=== PATIENT | male | born 1970 ===

== ENCOUNTER 2016-10-22 20:20 | Emergency (ER) | payer BC, OTHER ==
[2016-10-22 20:39] VITALS: BP 137/77
[2016-10-22] MEDS ORDERED: Famotidine 20 MG/2 ML SDV IVPUSH ONE (21:09)
[2016-10-22] MEDS ORDERED: Sodium Chloride 0.9% 10 ML Syringe FLUSH PRN (21:09)
[2016-10-22] MEDS ORDERED: Ondansetron 4 MG Tab.DIS PO ONE (21:09)
[2016-10-22] MEDS ORDERED: Sodium Chloride 0.9% 1,000 ML IV SCH (21:15)
[2016-10-22] MEDS ORDERED: HYDROmorphone 0.5 MG/0.5 ML Syringe IVPUSH ONE (21:16)
[2016-10-22] MEDS ORDERED: Ondansetron 4 MG/2 ML SDV IVPUSH ONE (21:16)
[2016-10-22] MEDS ORDERED: Sodium Chloride 0.9% 500 ML IV ONE (22:36)
--- NOTE | 2016-10-22 22:37 | EDM.PDOC ---
ED HPI GENERAL MEDICAL PROBLEM - General Chief Complaint: Abdominal Pain Stated Complaint: ABDOMINAL PAIN Time Seen by Provider: 10/22/16 20:46 Source of Information: Reports: Patient, Family (Spouse), RN Notes Reviewed - History of Present Illness INITIAL COMMENTS - FREE TEXT/NARRATIVE: 45-year-old male comes in with upper abdominal pain. Started. Early this morning about 18 hours ago. The pain has gotten worse throughout the day. He has no appetite. He has had nausea, did make himself vomit once and that did help the discomfort for a while. Continues to have intermittent severe discomfort with slight radiation to the back. It is gallbladder taken out about 3 or 4 years ago. He states he did have to go to [facility] after surgery and have what sounds like an ERCP. Is not having chest pain or difficulty breathing. No fever or chills. No diarrhea. Epigastric Pain Score (Numeric/FACES): 9 - Related Data Allergies Allergy/AdvReac Type Severity Reaction Status Date / Time No Known Allergies Allergy Verified 10/22/16 20:39 Home Meds: Home Meds . [No Known Home Meds] 10/22/16 [History] Past Medical History - Past Health History Medical/Surgical History: Denies Medical/Surgical History - Past Surgical History GI Surgical History: Reports: Cholecystectomy Social & Family History - Tobacco Use Smoking Status *Q: Never Smoker Years of Tobacco use: 15 Used Tobacco, but Quit: No Second Hand Smoke Exposure: No - Caffeine Use Caffeine Use: Reports: Soda - Alcohol Use Days Per Week of Alcohol Use: 0 - Recreational Drug Use Recreational Drug Use: No Drug Use in Last 12 Months: No ED ROS GENERAL - Review of Systems Review Of Systems: See Below Constitutional: Denies: Fever, Chills, Diaphoresis HEENT: Denies: Throat Pain Respiratory: Denies: Shortness of Breath, Pleuritic Chest Pain Cardiovascular: Denies: Chest Pain GI/Abdominal: Reports: Abdominal Pain (Upper abdomen), Nausea, Vomiting (Once). Denies: Constipation, Diarrhea : Reports: No Symptoms Musculoskeletal: Reports: Back Pain (Occasional mild) Skin: Reports: No Symptoms Neurological: Reports: No Symptoms ED EXAM, GI/ABD - Physical Exam Exam: See Below General Appearance: Alert, Moderate Distress Throat/Mouth: Normal Inspection, Normal Oropharynx Head: Atraumatic. No: Facial Swelling Neck: Supple, Full Range of Motion Respiratory/Chest: No Respiratory Distress, Lungs Clear, Normal Breath Sounds Cardiovascular: Regular Rate, Rhythm GI/Abdominal: Soft, Tenderness (Upper mid abdomen, remainder of abdomen soft and nontender). No: Guarding, Rebound Back Exam: Normal Inspection. No: CVA Tenderness (L), CVA Tenderness (R) Extremities: Normal Inspection, Increased Warmth Neurological: Alert, Oriented, No Motor/Sensory Deficits Skin Exam: Warm, Dry, Normal Color Course - Vital Signs Last Recorded V/S: Last Vital Signs Temp 96.9 F 10/22/16 20:34 Pulse 82 10/22/16 20:34 Resp 18 10/22/16 20:34 BP 137/77 10/22/16 20:34 Pulse Ox 98 10/22/16 20:34 - Orders/Labs/Meds Orders: Active Orders 24 hr Category Date Time Status Peripheral IV Care [RC] . DIRECTED Care 10/22/16 21:09 Active Abdomen Pelvis w Cont [CT] Stat Exams 10/22/16 22:36 Taken Sodium Chloride 0.9% [Normal Saline] 1,000 ml Med 10/22/16 21:15 Active IV ONETIME Sodium Chloride 0.9% [Saline Flush] Med 10/22/16 21:09 Active 10 ml FLUSH ASDIRECTED PRN Peripheral IV Insertion Adult [OM.PC] Stat Oth 10/22/16 21:09 Ordered Medication Orders Sodium Chloride (Normal Saline) 1,000 mls @ 999 mls/hr IV ONETIME [facility] Last Admin: 10/22/16 21:26 Dose: 999 mls/hr Sodium Chloride (Saline Flush) 10 ml FLUSH ASDIRECTED PRN PRN Reason: Keep Vein Open Last Admin: 10/22/16 21:27 Dose: 10 ml Labs: Laboratory Tests 10/22/16 10/22/16 10/22/16 Range/Units 21:15 21:15 21:15 WBC 13.19 H (4.23-9.07) K/mm3 RBC 5.78 (4.63-6.08) M/mm3 Hgb 16.2 (13.7-17.5) gm/L Hct 47.2 (40.1-51.0) % MCV 81.7 (79.0-92.2) fl MCH 28.0 (25.7-32.2) pg MCHC 34.3 (32.2-35.5) g/dl RDW Std Deviation 42.0 (35.1-43.9) fL Plt Count 236 (163-337) K/mm3 MPV 10.8 (9.4-12.3) fl Neut % (Auto) 84.2 H (34.0-67.9) % Lymph % (Auto) 8.1 L (21.8-53.1) % Morrill % (Auto) 7.3 (5.3-12.2) % Eos % (Auto) 0.1 L (0.8-7.0) Baso % (Auto) 0.1 (0.1-1.2) % Neut # (Auto) 11.11 H (1.78-5.38) K/mm3 Lymph # (Auto) 1.07 L (1.32-3.57) K/mm3 Morrill # (Auto) 0.96 H (0.30-0.82) K/mm3 Eos # (Auto) 0.01 L (0.04-0.54) K/mm3 Baso # (Auto) 0.01 (0.01-0.08) K/mm3 Manual Slide Review Normal smear Sodium 138 (136-145) mEq/L Potassium 4.0 (3.5-5.1) mEq/L Chloride 104 (98-107) mEq/L Carbon Dioxide 25 (21-32) mEq/L Anion Gap 13.0 (5-15) BUN 15 (7-18) mg/dL Creatinine 1.2 (0.7-1.3) mg/dL Est Cr Clr Drug Dosing 81.05 mL/min Estimated GFR (MDRD) > 60 (>60) mL/min BUN/Creatinine Ratio 12.5 L (14-18) Glucose 135 H (74-106) mg/dL Calcium 8.9 (8.5-10.1) mg/dL Total Bilirubin 1.7 H (0.2-1.0) mg/dL GGT 21 (15-85) U/L AST 22 (15-37) U/L ALT 43 (16-63) U/L Alkaline Phosphatase 83 (46-116) U/L Total Protein 7.8 (6.4-8.2) g/dl Albumin 4.1 (3.4-5.0) g/dl Globulin 3.7 gm/dL Albumin/Globulin Ratio 1.1 (1-2) Lipase 32480 H (73-393) U/L Meds: Medications Generic Name Dose Route Start Last Admin Trade Name Kinjal PRN Reason Stop Dose Admin Sodium Chloride 1,000 mls @ 999 mls/hr 10/22/16 21:15 10/22/16 21:26 Normal Saline IV 999 mls/hr ONETIME [facility] Administration Sodium Chloride 10 ml 10/22/16 21:09 10/22/16 21:27 Saline Flush FLUSH 10 ml ASDIRECTED PRN Administration Keep Vein Open Discontinued Medications Generic Name Dose Route Start Last Admin Trade Name Rigobertoq PRN Reason Stop Dose Admin Famotidine 20 mg 10/22/16 21:09 10/22/16 21:26 Pepcid IVPUSH 10/22/16 21:10 20 mg ONETIME ONE Administration Hydromorphone HCl 0.5 mg 10/22/16 21:16 10/22/16 21:26 Dilaudid IVPUSH 10/22/16 21:17 0.5 mg ONETIME ONE Administration Hydromorphone HCl 0.5 mg 10/23/16 01:06 10/23/16 01:12 Dilaudid IVPUSH 10/23/16 01:07 0.5 mg ONETIME ONE Administration Sodium Chloride 500 mls @ 999 mls/hr 10/22/16 22:36 10/22/16 22:44 Normal Saline IV 10/22/16 23:06 999 mls/hr .BOLUS ONE Administration Sodium Chloride 500 mls @ 999 mls/hr 10/23/16 01:06 10/23/16 01:13 Normal Saline IV 10/23/16 01:36 999 mls/hr .BOLUS ONE Administration Iopamidol 100 ml 10/22/16 23:56 Isovue-370 (76%) IVPUSH 10/22/16 23:57 ONETIME ONE Iopamidol 25 ml 10/22/16 23:56 Isovue-370 (76%) IVPUSH 10/22/16 23:57 ONETIME ONE Ondansetron HCl 4 mg 10/22/16 21:16 10/22/16 21:27 Zofran IVPUSH 10/22/16 21:17 4 mg ONETIME ONE Administration - Re-Assessments/Exams Free Text/Narrative Re-Assessment/Exam: 10/22/16 22:47 patient feels better after Dilaudid 0.5 mg IV, Zofran IV. Unfortunately his labs show quite marketed lipase of 12,500, bilirubin mildly elevated at 1.7. Liver enzymes are all normal. White blood count 13,000. 10/23/16 01:30. CT of abdomen showed a subtle "dusky appearance to the peripancreatic fat". See radiologist report for details. Patient continues to have intermittent upper abdominal discomfort. He did do fairly well with the Dilaudid 0.5 mg IV for a while but now the pain is starting to come back. Have repeated Dilaudid 0.5 mg IV. I have offered observation admission. At this time he does decline, states [place] Discharge instructions as documented Departure - Departure Time of Disposition: 01:23 Disposition: Home, Self-Care 01 Condition: serious Clinical Impression: Pancreatitis Qualifiers: Chronicity: acute Pancreatitis type: unspecified pancreatitis type Acute pancreatitis complication: unspecified Qualified Code(s): K85.90 - Acute pancreatitis without necrosis or infection, unspecified - Discharge Information Instructions: Acute Pancreatitis, [id number] Referrals: PCP,None [Primary Care Provider] - Forms: ED Department Discharge Additional Instructions: Clear liquids and very bland diet, small amounts of food only at a time as tolerated, Zofran if needed for nausea or vomiting, Tylenol for mild to moderate discomfort or hydrocodone if needed for more severe pain, return to ED if symptoms worsening in any way. Followup clinic in about 2-3 days for recheck. I recommend seeing Dr. Finnegan, [facility]. Call [phone] for appointment or see one of the other providers if unable to get in to see Dr. Finnegan. - My Orders Last 24 Hours: My Active Orders 10/22/16 21:09 Peripheral IV Care [RC] . DIRECTED Sodium Chloride 0.9% [Saline Flush] 10 ml FLUSH ASDIRECTED PRN Peripheral IV Insertion Adult [OM.PC] Stat 10/22/16 21:15 Sodium Chloride 0.9% [Normal Saline] 1,000 ml IV ONETIME 10/22/16 22:36 Abdomen Pelvis w Cont [CT] Stat - Assessment/Plan Last 24 Hours: My Active Orders 10/22/16 21:09 Peripheral IV Care [RC] . DIRECTED Sodium Chloride 0.9% [Saline Flush] 10 ml FLUSH ASDIRECTED PRN Peripheral IV Insertion Adult [OM.PC] Stat 10/22/16 21:15 Sodium Chloride 0.9% [Normal Saline] 1,000 ml IV ONETIME 10/22/16 22:36 Abdomen Pelvis w Cont [CT] Stat
[2016-10-22] MEDS ORDERED: Iopamidol 755 Mg/ML 100 ML Bottle IVPUSH ONE (23:56)
[2016-10-22] MEDS ORDERED: Iopamidol 755 MG/ML 50 ML Bottle IVPUSH ONE (23:56)
[2016-10-23] MEDS ORDERED: HYDROmorphone 0.5 MG/0.5 ML Syringe IVPUSH ONE (01:06)
[2016-10-23] MEDS ORDERED: Sodium Chloride 0.9% 500 ML IV ONE (01:06)
--- NOTE | 2016-10-23 09:37 | CT ---
CT abdomen and pelvis Technique: Multiple axial sections were obtained from above the dome of the diaphragm inferiorly through the pubic symphysis. Intravenous and oral contrast was utilized. Delayed images were also obtained through the abdomen and pelvis. Comparison: Previous abdominal and pelvic CT study of 08/29/13 is available. Findings: Visualized lung bases show nothing acute. Liver shows no focal abnormality. Spleen is within normal limits. Adrenal glands show no nodule. Surgical clips noted from prior cholecystectomy. Very minimal inflammatory type change felt to be present around the pancreas suggesting minimal pancreatitis. Kidneys show symmetric contrast enhancement. Delayed images show contrast within the distal ureters and bladder without obstruction. Adrenal glands show no nodule. Aorta shows no aneurysmal dilatation. No retroperitoneal adenopathy or mesenteric abnormalities are seen. Mild colonic diverticuli seen within the sigmoid region. No free fluid or inflammatory change is seen. Bone window settings were reviewed which show scattered degenerative change within the spine. Impression: 1. Minimal inflammatory-type change around the pancreas suspicious for minimal pancreatitis. 2. Other incidental findings as described above. Diagnostic code #3 I agree with preliminary report issued by [facility] (preliminary report dictated on 10/23/16, 1:36 AM Central Time)
== END 2016-10-23 01:45 | disposition home or self-care (01) ==
LOC: JD.ED 20:20
DX: K85.90 Acute pancreatitis without necrosis or infection, unspecified (principal); Z90.49 Acquired absence of other specified parts of digestive tract
CPT/HCPCS: 36415; 74177; 80053; 82977; 83690; 85025; 96361; 96374; 96375; 99284; J1170; J2405; J7040; J7050; Q9967